=== PATIENT | female | born 1980 | race African-American/Black ===

== ENCOUNTER 2018-11-23 08:55 | Emergency (ER) | payer OTHER ==
[2018-11-23] MEDS ORDERED: Ibuprofen TAB* 600 MG PO ONE (09:08)
--- NOTE | 2018-11-23 09:44 | ED ---
Lower Extremity - HPI Summary HPI Summary: This patient is a 38-year-old otherwise healthy female presenting to the ED after a phone the shower this morning. Patient states while shaving her legs, she "twisted" her leg, stating her knee twisted in while her ankle twisted outwards. She is complaining of lateral ankle pain as well as lateral knee pain. Patient has been unable to ambulate. Denies any swelling or ecchymosis to the areas. She states she has been unable to bear weight since the incident. She denies any obvious deformities. Denies previous injuires to the ankle or knee. Pt unable to flex and extend at the ankle and knee d/t pain. 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 - History of Current Complaint Chief Complaint: EDExtremityLower Stated Complaint: FALL- LEFT LEG AND KNEE PAIN PER PT Time Seen by Provider: 11/23/18 09:02 Hx Obtained From: Patient Hx Last Menstrual Period: 04/24/14 Onset of Pain: Minutes Onset/Duration: Minutes Severity Initially: Mild Severity Currently: Mild Pain Intensity: 10 Pain Scale Used: 0-10 Numeric Timing: Constant Location: Is Discrete @ - left ankle and knee Character Of Pain: Aching Associated Signs And Symptoms: Negative: Swelling, Redness, Bruising Aggravating Factor(s): Standing, Ambulation Able to Bear Weight: No - Risk Factors Gout Risk Factors: Negative DVT Risk Factors: Negative Septic Arthritis Risk Factor: Negative - Allergies/Home Medications Allergies/Adverse Reactions: Allergies Allergy/AdvReac Type Severity Reaction Status Date / Time No Known Allergies Allergy Verified 11/23/18 09:00 Home Medications: Home Medications NK [No Home Medications Reported] 11/23/18 [History Confirmed 11/23/18] PMH/Surg Hx/FS Hx/Imm Hx Previously Healthy: Yes Endocrine/Hematology History: Denies: Hx Diabetes, Hx Thyroid Disease Cardiovascular History: Denies: Hx Hypertension Respiratory History: Denies: Hx Asthma, Hx Chronic Obstructive Pulmonary Disease (COPD) GI History: Denies: Hx Ulcer Musculoskeletal History: Reports: Other Musculoskeletal History - FRACTURED NOSE Sensory History: Denies: Hx Contacts or Glasses, Hx Hearing Aid Opthamlomology History: Denies: Hx Contacts or Glasses Neurological History: Reports: Hx Headaches - H/A DURING MENSTRAUL CYCLE - Surgical History Surgery Procedure, Year, and Place: BREAST SURGERY REDUCTION 2002 Hx Anesthesia Reactions: No - Immunization History Date of Tetanus Vaccine: up to date per pt Hx Pertussis Vaccination: No Immunizations Up to Date: Yes Infectious Disease History: No Infectious Disease History: Denies: Hx Clostridium Difficile, Hx Hepatitis, Hx Human Immunodeficiency Virus (HIV), Hx of Known/Suspected MRSA, Hx Shingles, Hx Tuberculosis, Hx Known/ Suspected VRE, Hx Known/Suspected VRSA, History Other Infectious Disease, Traveled Outside the [place] in Last 30 Days - Social History Occupation: Employed Full-time Lives: With Family Alcohol Use: Occasionally Alcohol Amount: SOCIALLLY Hx Substance Use: No Substance Use Type: Reports: None Hx Tobacco Use: No Smoking Status (MU): Former Smoker Review of Systems Negative: Fever, Chills, Fatigue, Skin Diaphoresis Negative: Palpitations, Chest Pain Negative: Shortness Of Breath, Cough Genitourinary: Negative Positive: no symptoms reported, see HPI Positive: Arthralgia - left ankle and left knee pain, Myalgia Skin: Negative Neurological: Negative All Other Systems Reviewed And Are Negative: Yes Physical Exam Triage Information Reviewed: Yes Vital Signs On Initial Exam: Initial Vitals Temp Pulse Resp BP Pulse Ox 98.5 F 83 16 135/91 98 11/23/18 08:57 11/23/18 08:57 11/23/18 08:57 11/23/18 08:57 11/23/18 08:57 Vital Signs Reviewed: Yes Appearance: Positive: Well-Appearing, Well-Nourished Skin: Positive: Warm, Skin Color Reflects Adequate Perfusion Head/Face: Positive: Normal Head/Face Inspection Eyes: Positive: EOMI, CAROL, Conjunctiva Clear Neck: Positive: Supple, No Lymphadenopathy Respiratory/Lung Sounds: Positive: Clear to Auscultation, Breath Sounds Present Cardiovascular: Positive: RRR, Pulses are Symmetrical in both Upper and Lower Extremities Musculoskeletal: Positive: Strength/ROM Intact - left ankle and knee pain - unable to flex and extend Neurological: Positive: Speech Normal Psychiatric: Positive: Affect/Mood Appropriate Procedures - Sedation Patient Received Moderate/Deep Sedation with Procedure: No Diagnostics - Vital Signs Vital Signs Temp Pulse Resp BP Pulse Ox 11/23/18 08:57 98.5 F 83 16 135/91 98 - Laboratory Lab Statement: Any lab studies that have been ordered have been reviewed, and results considered in the medical decision making process. Lower Extremity Course/Dx - Course Course Of Treatment: Patient is evaluated for left ankle and knee pain after a fall in the shower. Denies trauma. Denies landing on the knee. States both areas "twisted" and has been unable to bear weight. 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 Physical examination, there is no swelling or ecchymosis noted. Pain to the lateral portion of the knee as well as the lateral portion of the ankle on light palpation. Patient is unable to plantarflex and dorsiflex at the ankle joint. She is unable to flex and extend at the left knee. Given ibuprofen and ice on arrival. Xrays of knee and ankle obtained which are negative for fx. Patient able to bear weight, but feels cannot abulate. She is given knee immobilizer as well as the knee and ankle were both Marty wrapped. Crutches given per request. She will follow-up with orthopedics next week. Encouraged ibuprofen. Given ibuprofen in ED. - Diagnoses Differential Diagnosis/HQI/PQRI: Positive: Sprain, Strain Provider Diagnoses: Knee pain, Ankle pain Discharge ED - Sign-Out/Discharge Documenting (check all that apply): Patient Departure - Discharge Plan Condition: Stable Disposition: HOME Patient Education Materials: Knee Pain (ED), Knee Immobilizer (ED) Referrals: Doe Samaniego MD [Primary Care Provider] - Doe Perea MD [Medical Doctor] - Additional Instructions: Please follow up with Orthopedics if symptoms worsen or persist Knee immobilizer as needed Crutches as needed for ambulation Keep the marty wrapped applied to the ankle and knee for at least 1 week Continue to take ibuprofen 600mg three times daily x 3-4 days for inflammation and swelling Ice to the area and elevation when possible - Billing Disposition and Condition Condition: STABLE Disposition: Home
[2018-11-23 11:23] VITALS: BP 142/91
== END 2018-11-23 11:22 | disposition home or self-care (01) ==
LOC: ED 08:55
DX: M25.572 Pain in left ankle and joints of left foot (principal); M25.562 Pain in left knee; W18.2XXA Fall in (into) shower or empty bathtub, initial encounter; Y93.E1 Activity, personal bathing and showering; Y92.002 Bathroom of unspecified non-institutional (private) residence as the place of occurrence of the external cause; Z87.891 Personal history of nicotine dependence
CPT/HCPCS: 99282; A9270-GY